=== PATIENT | male | born 1970 | race Caucasian/White ===

== ENCOUNTER 2022-12-02 07:36 | Day surgery (SDC) | payer BC ==
[~2022-12-02 07:36] MED LIST: LACTATED RINGERS 1,000 ML IV SCH
[2022-12-02 08:13] VITALS: TEMP 98.1
[2022-12-02 08:13] LABS: Glucose,Whole Blood 94 mg/dL (70-110)
[2022-12-02] MEDS ORDERED: LIDOCAINE 1% (10MG/ML) FOR IV START INTRADERMA ONE (08:14)
[2022-12-02] MEDS ORDERED: PROPOFOL 10 MG/ML 20 ML VIAL IV ONE (08:32)
[2022-12-02] MEDS ORDERED: LIDOCAINE 2% INJ 20 MG/ML (2 ML VIAL) ONE (08:32)
--- NOTE | 2022-12-02 08:35 | P.GSHP ---
History of Present Illness H&P Date: 12/02/22 Chief Complaint: Screen colonoscopy This is a 52-year-old male presents today for screening colonoscopy. Patient denies a significant GI complaints. Past Medical History Past Medical History: CVA/TIA, Diabetes Mellitus, Hyperlipidemia, Memory Impairment Additional Past Medical History / Comment(s): stroke 01/2020 residual mild recall issues, pain/ tingling on rt side and weakness. hx of kidney infection, Type 2 diabetes diet controlled History of Any Multi-Drug Resistant Organisms: None Reported Past Surgical History: Tonsillectomy Past Anesthesia/Blood Transfusion Reactions: No Reported Reaction Smoking Status: Former smoker, Light tobacco smoker - Past Family History Mother Additional Family Medical History / Comment(s): narrowing in throat. Father Family Medical History: GERD/Reflux Medications and Allergies Home Medications Medication Instructions Recorded Confirmed Type Folic Acid 1 mg PO DAILY 11/29/22 12/02/22 History Naproxen Sodium [Aleve] 220 mg PO DIRECTED PRN 11/29/22 12/02/22 History Unk Fish Oil 1 tab PO DAILY 11/29/22 12/02/22 History Unk Tumeric 1 tab PO DAILY 11/29/22 12/02/22 History lisinopriL [Zestril] 10 mg PO DAILY 11/29/22 12/02/22 History Allergies Allergy/AdvReac Type Severity Reaction Status Date / Time No Known Allergies Allergy Verified 12/02/22 08:02 Surgical - Exam Vital Signs Temp Pulse Resp BP Pulse Ox 98.1 F 80 16 169/84 98 12/02/22 08:08 12/02/22 08:08 12/02/22 08:08 12/02/22 08:08 12/02/22 08:08 - General well developed, well nourished, no distress - Eyes PERRL - ENT normal pinna - Neck no masses - Respiratory normal expansion - Cardiovascular Rhythm: regular - Abdomen Abdomen: soft, non tender Assessment and Plan Assessment: We'll perform screening colonoscopy
--- NOTE | 2022-12-02 08:46 | P.OP ---
Date of Procedure: 12/02/22 Preoperative Diagnosis: Screening colonoscopy Postoperative Diagnosis: Normal colonoscopy Procedure(s) Performed: Colonoscopy Anesthesia: MAC Surgeon: Ayad Augustine Pathology: none sent Condition: stable Disposition: PACU Description of Procedure: PROCEDURE: The patient was placed on the endoscopy table in the lateral position. Digital rectal examination was performed which revealed no abnormalities. The prostate was symmetrical without nodules. Flexible colonoscope was then placed in the patient's anus and passed throughout the entire colon. The ileocecal valve was visualized. The cecum, ascending, transverse, descending and sigmoid colon were normal. The rectum was normal as well. There were no masses, polyps or diverticula noted in the entire colon. SUMMARY OF FINDINGS: Normal colonoscopy.
[2022-12-02 09:17] VITALS: BP 143/80; PULSE 69; RESP 18
== END 2022-12-02 09:24 | disposition home or self-care (01) ==
LOC: ORWHC2ENDO 07:36
PROVIDERS: ATTEND Surgery
DX: Z12.11 Encounter for screening for malignant neoplasm of colon (principal); E11.9 Type 2 diabetes mellitus without complications; E78.5 Hyperlipidemia, unspecified; I10 Essential (primary) hypertension; F12.90 Cannabis use, unspecified, uncomplicated; I69.351 Hemiplegia and hemiparesis following cerebral infarction affecting right dominant side; F17.200 Nicotine dependence, unspecified, uncomplicated; Z79.899 Other long term (current) drug therapy; Z87.440 Personal history of urinary (tract) infections
CPT/HCPCS: 45378; J2704; J2001

== ENCOUNTER → 2023-11-15 | Outpatient (CLI) | payer MEDICARE ==
--- NOTE | 2023-11-15 17:21 | US ---
EXAMINATION TYPE: US kidneys/renal and bladder DATE OF EXAM: 11/15/2023 COMPARISON: NONE CLINICAL INDICATION: Male, 53 years old with history of R80.9 PROTEINURIA; abn labs EXAM MEASUREMENTS: Right Kidney: 9.9 x 5.3 x 4.5 cm Left Kidney: 9.7 x 4.9 x 4.7 cm Right Kidney: No hydronephrosis or masses seen Left Kidney: No hydronephrosis or masses seen Bladder: wnl Bilateral Jets seen: yes There is no evidence for hydronephrosis at this point in time. No nephrolithiasis is seen. No annetta s are identified. The urinary bladder is anechoic. Bilateral ureteral jets are seen. IMPRESSION: No evidence for obstructive uropathy, calculus or mass.
== END | disposition home or self-care (01) ==
LOC: RADUSWWP 15:41
PROVIDERS: ATTEND Family Medicine
DX: R80.9 Proteinuria, unspecified (principal)
CPT/HCPCS: 76770